=== PATIENT | female | born 1980 | race Caucasian/White ===

== ENCOUNTER 2018-07-29 13:03 | Outpatient (CLI) | payer OTHER | END 2018-07-29 13:06 | disposition home or self-care (01) | LOC: SONOGRAMA 13:03 | DX: N60.11 Diffuse cystic mastopathy of right breast (principal); N60.12 Diffuse cystic mastopathy of left breast ==

== ENCOUNTER 2019-05-30 07:29 | Inpatient (IN) | payer OTHER ==
[~2019-05-30] VITALS: Ht 162.6 cm; Wt 66.2 kg
== END 2019-06-02 12:59 | disposition home or self-care (01) | DRG 743 ==
LOC: O/R 05-31 06:00 → OB/GYN 05-31 12:00 → CIR.AMB 05-31 15:48 → EDSTATUS 05-31 16:54 → OB/GYN 05-31 16:55
PROVIDERS: ADMIT Obstetrics & Gynecology
PROC: 0UT90ZL Resection of Uterus, Supracervical, Open Approach (ICD-10-PCS; principal; 2019-05-31 12:00)
DX: D25.1 Intramural leiomyoma of uterus (principal); N39.3 Stress incontinence (female) (male); N83.8 Other noninflammatory disorders of ovary, fallopian tube and broad ligament

== ENCOUNTER 2019-08-14 12:03 | Outpatient (CLI) | payer OTHER | END 2019-08-16 06:39 | disposition home or self-care (01) | LOC: SONOGRAMA 12:03 | DX: R10.84 Generalized abdominal pain (principal) ==

== ENCOUNTER 2024-03-07 11:54 | Outpatient (CLI) | payer OTHER | END 2024-03-07 11:55 | disposition home or self-care (01) | LOC: LAB 11:54 | PROVIDERS: ATTEND Urology | DX: N39.0 Urinary tract infection, site not specified (principal) ==